=== PATIENT | female | born 1940 | race Two or more races ===

== ENCOUNTER 2016-06-02 09:32 | Emergency (ER) | payer OTHER ==
--- NOTE | 2016-06-02 09:43 | EDPHY ---
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 . - Social History Smoking Status: Never smoked Constitutional: Initial Vital Signs Temperature (C) 36.3 C 06/02/16 09:33 Heart Rate 84 06/02/16 09:33 Respiratory Rate 16 06/02/16 09:33 Blood Pressure 260/116 H 06/02/16 09:33 O2 Sat (%) 93 06/02/16 09:33 O2 Delivery Mode Room Air Allergies/Adverse Reactions: aspr Allergy (Uncoded 06/02/16 09:38) Home Medications: Medication Instructions Recorded Cyclobenzaprine [Flexeril] 10 mg PO TID #15 tab 03/11/16 Metoprolol Tartrate 03/11/16 SIMVASTATIN 03/11/16 oxyCODONE/APAP 5/325 [Percocet 1 - 2 tab PO Q4PRN PRN #11 tab 03/11/16 5/325 (*)] traMADol 03/11/16 Lisinopril 10 mg PO DAILY #30 tablet 06/02/16 Medical Decision Making ED Course/Re-evaluation: CHIEF COMPLAINT: Hypertension. HISTORY OF PRESENT ILLNESS: This is a 75-year-old female with a history of hypertension who presents after a home-visiting nurse measured her blood pressure high. She has no complaints or symptoms from the hypertension. She denies chest pain, hematuria, confusion, shortness of breath. She takes 25mg Metoprolol daily for her hypertension. She had a crown on a tooth placed last week but otherwise denies recent sickness. REVIEW OF SYSTEMS: A 10 point review of systems was performed and is negative with the exception of the elements mentioned in the history of present illness. PHYSICAL EXAM: HR, BP, O2 Sat, RR. Temp noted General Appearance: Alert, well hydrated, appropriate, and non-toxic appearing. Head: Atraumatic without scalp tenderness or obvious injury Eyes: Pupils equal, round, reactive to light and accommodation, EOMI, no trauma , no injection. Ears: Clear bilaterally, no perforation, normal landmarks Nose: Atraumatic, no rhinorrhea, clear. Throat: There is no erythema or exudates, no lesions, normal tonsils, mucus membranes moist. Neck: Supple, 2+ carotid upstroke, nontender, no lymphadenopathy. Respiratory: No retractions, no distress, no wheezes, and no accessory muscle use. Lungs are clear to auscultation bilaterally. Cardiovascular: Regular rate and rhythm, no murmurs, rubs, or gallops. Bilateral carotid, radial, dorsalis pedis, and posterior tibial pulses intact. Good capillary refill all extremities. Gastrointestinal: Abdomen is soft, nontender, non-distended, no masses, no rebound, no guarding, no peritoneal signs. Musculoskeletal: Normal active ROM of all extremities, atraumatic. Neurological: Alert, appropriate, and interactive. The patient has normal DTRs and non-focal cranial nerves, motor, sensory, and cerebellar exam. Skin: No rashes, good turgor, no nodules on palpation. Past medical history:Hypertension, hypercholesterolemia, afib, Past surgical history:Open heart surgery 2014. Family history: Social history:Here with daughter. DIAGNOSTICS/PROCEDURES/CRITICAL CARE TIME: The 12 lead EKG was interpreted by myself. See hard copy and/or "tracemaster" electronic copy for interpretation. Sinus rhythm rate 62. LVH with secondary repolarization abnormality. DIFFERENTIAL DIAGNOSIS: The differential diagnosis for the patient includes, but is not limited to essential hypertension, hypertensive urgency, hypertensive emergency. MEDICAL DECISION MAKIN-year-old female presents with blood pressure of 260/116. This was initially measured high by the nurse that visits her house. She has no apparent end-organ damage. No hematuria, no confusion, no shortness of breath, no other complaints or symptoms. She takes 25mg Metoprolol daily and took it at 0900 this morning. An IV was established and labs ordered. EKG ordered. Her EKG today shows LVH which is similar to her previous EKG 12/2014, which also shows LVH. She reports that her doctor was aware she was hypertensive at 25mg but when she tried 50mg Metoprolol she was too dizzy and lightheaded and was dropped back to 25mg. 10mg PO Lisinopril administered at this time. patient's lab work is negative. She has no evidence of end-organ damage, hypertensive urgency, or hypertensive emergency. - Data Points Laboratory Results: Laboratory Results 06/02/16 10:35 06/02/16 10:35 06/02/16 06/02/16 11:28 10:35 WBC 5.31 10^3/uL (3.80-9.50) RBC 4.72 10^6/uL (4.18-5.33) Hgb 14.6 g/dL (12.6-16.3) Hct 41.7 % (38.0-47.0) MCV 88.3 fL (81.5-99.8) MCH 30.9 pg (27.9-34.1) MCHC 35.0 g/dL (32.4-36.7) RDW 12.5 % (11.5-15.2) Plt Count 241 10^3/uL (150-400) MPV 10.4 fL (8.7-11.7) Neut % (Auto) 67.3 % (39.3-74.2) Lymph % (Auto) 22.8 % (15.0-45.0) [place] % (Auto) 7.0 % (4.5-13.0) Eos % (Auto) 1.7 % (0.6-7.6) Baso % (Auto) 0.8 % (0.3-1.7) Nucleat RBC Rel Count 0.0 % (0.0-0.2) Absolute Neuts (auto) 3.58 10^3/uL (1.70-6.50) Absolute Lymphs (auto) 1.21 10^3/uL (1.00-3.00) Absolute Monos (auto) 0.37 10^3/uL (0.30-0.80) Absolute Eos (auto) 0.09 10^3/uL (0.03-0.40) Absolute Basos (auto) 0.04 10^3/uL (0.02-0.10) Absolute Nucleated RBC 0.00 10^3/uL (0-0.01) Immature Gran % 0.4 % (0.0-1.1) Immature Gran # 0.02 10^3/uL (0.00-0.10) Sodium 143 mEq/L (134-144) Potassium 3.7 mEq/L (3.5-5.2) Chloride 104 mEq/L (97-110) Carbon Dioxide 27 mEq/l (22-31) Anion Gap 12 mEq/L (8-16) BUN 8 mg/dL (7-23) Creatinine 0.7 mg/dL (0.6-1.0) Estimated GFR > 60 Glucose 106 H mg/dL (70-100) Calcium 9.1 mg/dL (8.5-10.4) Troponin I < 0.012 ng/mL (0-0.034) NT-Pro-B Natriuret Pep 353 H pg/mL (0-125) Urine Color COLORLESS Urine Appearance CLEAR Urine pH 6.0 (5.0-7.5) Ur Specific [place] 1.002 (1.002-1.030) Urine Protein NEGATIVE (NEGATIVE) Urine Ketones NEGATIVE (NEGATIVE) Urine Blood NEGATIVE (NEGATIVE) Urine Nitrate NEGATIVE (NEGATIVE) Urine Bilirubin NEGATIVE (NEGATIVE) Urine Urobilinogen NEGATIVE EU (0.2-1.0) Ur Leukocyte Esterase NEGATIVE (NEGATIVE) Ur Culture Indicated? NOT INDICATED (NI) Urine Glucose NEGATIVE (NEGATIVE) Departure - Departure Disposition: Home, Routine, Self-Care Clinical Impression: Hypertension Qualifiers: Hypertension type: unspecified secondary hypertension Qualifier Code: (I15.9) Secondary hypertension, unspecified Condition: Good Instructions: Hypertension (ED) Additional Instructions: Follow up with your primary care provider tomorrow for reevaluation. Return to the emergency department if you experience serious worsening of condition. Referrals: Luna Abrams PA [Primary Care Provider] - As per Instructions Prescriptions: Lisinopril 10 mg PO DAILY #30 tablet Report Scribed for: Ted Del Rio Report Scribed by: Edy Adame Date of Report: 06/02/16 Time of Report: 10:41
--- NOTE | 2016-06-02 10:30 | CPEKG ---
Heart Rate: 62 RR Interval: 968 P-R Interval: 192 QRSD Interval: 90 QT Interval: 416 QTC Interval: 423 P [place]: 33 QRS [place]: 5 T Wave [place]: 104 EKG Severity - ABNORMAL ECG - EKG Impression: SINUS RHYTHM EKG Impression: PROBABLE LEFT ATRIAL ABNORMALITY EKG Impression: LVH WITH SECONDARY REPOLARIZATION ABNORMALITY EKG Impression: ANTERIOR Q WAVES, POSSIBLY DUE TO LVH Electronically Signed By: Ted Del Rio 02-Jun-2016 15:00:51
[2016-06-02 10:59] LABS: % IMMATURE GRANULYOCYTES 0.4 % (0.0-1.1); ABSOLUTE IMMATURE GRANULOCYTES 0.02 10^3/uL (0.00-0.10); ADD DIFF? NO; ADD MORPH? NO; ADD SCAN? NO; ATYPICAL LYMPHOCYTE FLAG 0 (0-99); FRAGMENT RBC FLAG 0 (0-99); HEMATOCRIT 41.7 % (38.0-47.0); HEMOGLOBIN 14.6 g/dL (12.6-16.3); LEFT SHIFT FLG 0 (0-99); LIPEMIA HEMOLYSIS FLAG 90 (0-99); MEAN CELL HEMOGLOBIN 30.9 pg (27.9-34.1); MEAN CELL VOLUME 88.3 fL (81.5-99.8); MEAN PLATELET VOLUME 10.4 fL (8.7-11.7); PLATELET CLUMPS FLAG 0 (0-99); PLATELET COUNT 241 10^3/uL (150-400); RED BLOOD CELL COUNT 4.72 10^6/uL (4.18-5.33); RED CELL DISTRIBUTION WIDTH 12.5 % (11.5-15.2)
[2016-06-02 11:16] LABS: ANION GAP 12 mEq/L (8-16); CALCIUM 9.1 mg/dL (8.5-10.4); CARBON DIOXIDE 27 mEq/l (22-31); CHLORIDE 104 mEq/L (97-110); CREATININE 0.7 mg/dL (0.6-1.0); GLOMERULAR FILTRATION RATE > 60; GLUCOSE 106 mg/dL (70-100); POTASSIUM 3.7 mEq/L (3.5-5.2); SODIUM 143 mEq/L (134-144)
[2016-06-02 11:28] LABS: TROPONIN I < 0.012 ng/mL (0-0.034)
[2016-06-02] MEDS ORDERED: LISINOPRIL 20 MG TAB ONE (11:32)
[2016-06-02 11:41] LABS: COLOR COLORLESS; LEUKOCYTE ESTERASE,URINE NEGATIVE (NEGATIVE); NITRITE,URINE NEGATIVE (NEGATIVE)
[2016-06-02 12:05] VITALS: BP 184/83; PULSE 67; RESP 17; TEMP 98.2; O2SAT 95
[2016-06-03] MEDS ORDERED: LISINOPRIL 10 MG TAB PO ONE (11:31)
== END 2016-06-02 12:04 | disposition home or self-care (01) ==
DX: I15.9 Secondary hypertension, unspecified (principal)

== ENCOUNTER 2016-06-19 13:43 | Emergency (ER) | payer OTHER ==
[2016-06-19] MEDS ORDERED: ONDANSETRON 4 MG/2 ML VIAL IVP ONE (14:33)
[2016-06-19] MEDS ORDERED: fentaNYL 100 MCG/2 ML INJ IVP ONE (14:33)
--- NOTE | 2016-06-19 14:37 | EDPHY ---
H & P Time Seen by Provider: 06/19/16 13:58 HPI/ROS: CHIEF COMPLAINT: left leg pain HISTORY OF PRESENT ILLNESS: Patient is a 76-year-old female with intermittent episodes of left leg pain. She states the pain usually resolves after taking medication. Today she developed left leg pain and extended all the way up into her medial and lateral thigh. She also felt pain in her left hip. It is worse with leg movement. She denies any numbness or tingling. No fevers or chills. No incontinence of urine or stool. Patient has no leg pain or swelling. No recent travel. REVIEW OF SYSTEMS: My complete review of systems is negative except as mentioned in the HPI. Past Medical/Surgical History: Includes hypertension Past surgical history: Includes orthopedic surgery Social history: The patient does not smoke or drink alcohol Smoking Status: Never smoked Physical Exam: Vitals noted GENERAL: Well-appearing, in no acute distress, alert. HEENT: Eyes normal to inspection, normal pharynx, no signs of dehydration. NECK: No thyromegaly, no lymphadenopathy, supple. RESPIRATORY: Clear to auscultation bilaterally, no rales, rhonchi or wheezing. CVS: Regular rate and rhythm, no rubs, murmurs, or gallops. ABDOMEN: Soft, nontender, nondistended, no organomegaly. No palpable mass BACK: Normal to inspection, no CVA tenderness. Patient has discomfort and pain in her left hip when trying to lay flat in the bed. This replicates the pain that she is currently having. SKIN: Normal color, no rash, warm, dry. No pallor. EXTREMITIES: No pedal edema, no calf tenderness, no Homans sign or cords, no joint swelling. Patient is able to range her left ankle, left knee and left hip. NEURO/PSYCH: Alert and oriented, normal mood and affect, normal motor sensory exam. Constitutional: Initial Vital Signs Temperature (C) 36.4 C 06/19/16 13:44 Heart Rate 71 06/19/16 13:44 Respiratory Rate 16 06/19/16 13:44 Blood Pressure 239/88 H 06/19/16 13:44 O2 Sat (%) 97 06/19/16 13:44 O2 Delivery Mode Room Air Allergies/Adverse Reactions: aspirin Allergy (Verified 06/19/16 13:47) Home Medications: Medication Instructions Recorded Metoprolol Tartrate 03/11/16 SIMVASTATIN 03/11/16 Lisinopril 10 mg PO DAILY #30 tablet 06/02/16 oxyCODONE IR [Oxycodone Ir (*)] 5 - 10 mg PO Q4 #17 tab 06/19/16 Medical Decision Making ED Course/Re-evaluation: In the emergency department I discussed possible etiologies with the patient. I answered all her questions. Patient had an IV placed. She was given fentanyl 50 mcg IV and Zofran 4 mg IV. Ultrasound was ordered. I rechecked the patient. Pain had improved after receiving fentanyl. She was neurovascular intact distally. Ultrasound: Please refer the dictated report by the radiologist. No acute disease or clot noted. Patient's chemistry panel was unremarkable Discussed the result with the patient. She was given Toradol 30 mg IV. 1605: The patient is doing well. She was able to ambulate. She is neurovascularly intact distally. She requests discharge home. She is given warnings prior to leaving. She will return with worsening symptoms. Differential Diagnosis: My differential includes but is not limited to sciatica, disc herniation, DVT, arterial clot, cellulitis, peripheral neuropathy - Data Points Laboratory Results: Laboratory Results 06/19/16 14:50 06/19/16 14:50 06/19/16 14:50 WBC 9.28 10^3/uL (3.80-9.50) RBC 4.50 10^6/uL (4.18-5.33) Hgb 14.2 g/dL (12.6-16.3) Hct 40.4 % (38.0-47.0) MCV 89.8 fL (81.5-99.8) MCH 31.6 pg (27.9-34.1) MCHC 35.1 g/dL (32.4-36.7) RDW 12.4 % (11.5-15.2) Plt Count 219 10^3/uL (150-400) MPV 10.6 fL (8.7-11.7) Neut % (Auto) 83.3 H % (39.3-74.2) Lymph % (Auto) 11.2 L % (15.0-45.0) [place] % (Auto) 5.0 % (4.5-13.0) Eos % (Auto) 0.0 L % (0.6-7.6) Baso % (Auto) 0.3 % (0.3-1.7) Nucleat RBC Rel Count 0.0 % (0.0-0.2) Absolute Neuts (auto) 7.73 H 10^3/uL (1.70-6.50) Absolute Lymphs (auto) 1.04 10^3/uL (1.00-3.00) Absolute Monos (auto) 0.46 10^3/uL (0.30-0.80) Absolute Eos (auto) 0.00 L 10^3/uL (0.03-0.40) Absolute Basos (auto) 0.03 10^3/uL (0.02-0.10) Absolute Nucleated RBC 0.00 10^3/uL (0-0.01) Immature Gran % 0.2 % (0.0-1.1) Immature Gran # 0.02 10^3/uL (0.00-0.10) Sodium 142 mEq/L (134-144) Potassium 4.1 mEq/L (3.5-5.2) Chloride 105 mEq/L (97-110) Carbon Dioxide 26 mEq/l (22-31) Anion Gap 11 mEq/L (8-16) BUN 9 mg/dL (7-23) Creatinine 0.6 mg/dL (0.6-1.0) Estimated GFR > 60 Glucose 114 H mg/dL (70-100) Calcium 9.3 mg/dL (8.5-10.4) Medications Given: Discontinued Medications Fentanyl (Sublimaze) 50 mcg IVP EDNOW ONE Stop: 06/19/16 14:34 Last Admin: 06/19/16 14:45 Dose: 50 mcg Ketorolac Tromethamine (Toradol) 30 mg IVP EDNOW ONE Stop: 06/19/16 15:37 Last Admin: 06/19/16 15:44 Dose: 30 mg Ondansetron HCl (Zofran) 4 mg IVP EDNOW ONE Stop: 06/19/16 14:34 Last Admin: 06/19/16 14:46 Dose: 4 mg Departure - Departure Disposition: Home, Routine, Self-Care Clinical Impression: Pain of left lower extremity Condition: Good Instructions: Leg Pain (ED), Sciatica (ED) Additional Instructions: Return with increasing pain, weakness, numbness, fever or any other concerns. Referrals: Luna Abrams PA [Primary Care Provider] - 1-2 days without fail Prescriptions: oxyCODONE IR [Oxycodone Ir (*)] 5 - 10 mg PO Q4 #17 tab
[2016-06-19 14:59] LABS: % IMMATURE GRANULYOCYTES 0.2 % (0.0-1.1); ABSOLUTE IMMATURE GRANULOCYTES 0.02 10^3/uL (0.00-0.10); ADD DIFF? NO; ADD MORPH? NO; ADD SCAN? NO; ATYPICAL LYMPHOCYTE FLAG 0 (0-99); FRAGMENT RBC FLAG 0 (0-99); HEMATOCRIT 40.4 % (38.0-47.0); HEMOGLOBIN 14.2 g/dL (12.6-16.3); LEFT SHIFT FLG 0 (0-99); LIPEMIA HEMOLYSIS FLAG 90 (0-99); MEAN CELL HEMOGLOBIN 31.6 pg (27.9-34.1); MEAN CELL HEMOGLOBIN CONCENTR. 35.1 g/dL (32.4-36.7); MEAN CELL VOLUME 89.8 fL (81.5-99.8); MEAN PLATELET VOLUME 10.6 fL (8.7-11.7); PLATELET CLUMPS FLAG 0 (0-99); PLATELET COUNT 219 10^3/uL (150-400); RED CELL DISTRIBUTION WIDTH 12.4 % (11.5-15.2)
[2016-06-19 15:22] LABS: ANION GAP 11 mEq/L (8-16); CALCIUM 9.3 mg/dL (8.5-10.4); CARBON DIOXIDE 26 mEq/l (22-31); CHLORIDE 105 mEq/L (97-110); CREATININE 0.6 mg/dL (0.6-1.0); GLOMERULAR FILTRATION RATE > 60; GLUCOSE 114 mg/dL (70-100); POTASSIUM 4.1 mEq/L (3.5-5.2); SODIUM 142 mEq/L (134-144)
--- NOTE | 2016-06-19 15:34 | US ---
Ultrasound Venous Duplex/Doppler left Leg History: Prior surgery. Pain. Findings: Ultrasound venous duplex and Doppler imaging of the common femoral vein, femoral vein, pop liteal vein, calf veins, greater saphenous vein origin, and contralateral common femoral vein demonst rates normal compressibility, color flow, and Doppler flow without deep venous thrombosis. Impression: No deep venous thrombosis left leg. Results called to Dr. Amparo Scott at 3:30 PM.
[2016-06-19] MEDS ORDERED: KETOROLAC 30 MG/1 ML SDV IVP ONE (15:36)
[2016-06-19 16:31] VITALS: BP 152/100; PULSE 74; RESP 20; TEMP 97.9; O2SAT 94
== END 2016-06-19 16:31 | disposition home or self-care (01) ==
DX: M79.605 Pain in left leg (principal); I10 Essential (primary) hypertension
CPT/HCPCS: 93971; 96374; 96375; 99285; J1885; J2405; J3010

== ENCOUNTER → 2018-08-28 | Outpatient (CLI) | payer OTHER | LOC: FIMAGING 09:29 | PROVIDERS: ATTEND Physician Assistant | DX: M19.042 Primary osteoarthritis, left hand (principal); M19.041 Primary osteoarthritis, right hand ==